=== PATIENT | female | born 1985 | race Caucasian/White ===

== ENCOUNTER 2023-06-23 09:10 | Outpatient (CLI) | payer OTHER | END 2023-06-23 09:11 | disposition home or self-care (01) | LOC: CSHMRI 09:10 | PROVIDERS: ATTEND Orthopaedic Surgery Hand Surgery | DX: S69.82XA Other specified injuries of left wrist, hand and finger(s), initial encounter (principal); S63.592A Other specified sprain of left wrist, initial encounter; M65.88 Other synovitis and tenosynovitis, other site; M25.432 Effusion, left wrist ==